=== PATIENT | male | born 1975 | race Caucasian/White ===

== ENCOUNTER → 2016-09-26 | Day surgery (SDC) | payer OTHER ==
[~2016-09-26] MED LIST: ASPIRIN81 M1 PO; GLUCOTROL PO; HCTZ; HCTZ PO; INDOCIN50 MG PO; INVOKANA100 MG; JANUVIA25 MG PO; LISINOPRIL PO; METFORMIN PO; METOPROLOL PO; PERCOCET PO; ZANTAC150 MG PO
--- NOTE | ~2016-09-26 | OR ---
Unit #: [id number] #: [id number] Patient: DONALD GOODE [id number] [address] [place], [place] [address] [id number] MR#: [id number] NAME: DONALD GOODE ROOM: Date of Procedure: 09/26/2016 Admission Date: 09/26/2016 Surgeon: Delmar Cordero M.D. : 1975 Attending Physician: Delmar Cordero M.D. Primary Care Physician: Kenney Leslie M.D. OPERATIVE REPORT PREOPERATIVE DIAGNOSES The patient has presented with history of belching, dyspepsia, and gastroesophageal reflux. In addition, he also needs a screening colonoscopy having had family history of colon cancer. Sister having of colon cancer in her 50s. PROCEDURE PERFORMED Upper gastrointestinal endoscopy and biopsy as well as colonoscopy up to cecum and terminal ileum. POSTOPERATIVE DIAGNOSES 1. For upper endoscopy, the patient had mild gastritis involving the mid body of the stomach with plaque-like appearances. Appropriate biopsies obtained. The biopsies obtained for CLOtest. The rest of the examination up to third part of duodenum was normal. 2. For colonoscopy, mild diverticulosis involving the right colon. Otherwise, normal examination up to cecum and terminal ileum. The quality of prep was good. No polyps were present or seen. RECOMMENDATIONS 1. Repeat colonoscopy in 5 years. 2. The patient will be started on empiric omeprazole 40 mg p.o. daily. He will be followed up in the office in 3 to 4 months' time. SEDATION USED MAC. DESCRIPTION OF PROCEDURE Following detailed explanation of the potential risks and complications of upper endoscopy and a colonoscopy, namely perforation, bleeding, and complications related to sedation, the patient was brought to GI lab and laid in the left lateral decubitus position. Lubricated tip of the Olympus video upper endoscope was passed through bite block into the proximal esophagus under direct vision. The entire esophageal mucosa was examined and appeared normal. Z-line was nicely demarcated, there being no esophagitis or hiatus hernia. The scope was then advanced into the gastric cavity and the latter was insufflated. Mucosa of the fundus, body, and antrum examined. The patient was noted to have mild diffuse gastritis involving the mid body of the stomach with plaque-like appearances in this area. No ulcers or erosions were seen. Biopsies obtained from this area and antrum for CLOtest. The pylorus was intubated with visualization of the normal duodenal bulb and second and third part Unit #: [id number] #: [id number] Patient: DONALD GOODE of the duodenum. Upon withdrawal and retroflexion, incisura, cardia, and greater curve examined and no additional findings noted. The scope was then withdrawn in the distal esophagus. The entire esophageal mucosa was examined all the way up to pharynx. No additional findings noted. The examination table was then turned by 180 degrees and the patient positioned for a colonoscopy. A digital rectal examination was performed, which was normal. Lubricated tip of the Olympus video colonoscope was inserted through the anus and advanced under direct vision. The scope was advanced and passed up to sigmoid into descending colon. Scant small diverticula were noted in this area. The scope tip was then navigated all the way up to cecum with visualization of the ileocecal valve and the appendiceal orifice. Preparation was good with good visualization and photodocumentation was obtained. Last few inches of the terminal ileum also visualized after intubation of the ileocecal valve and appeared normal. Successive segments of the colonic mucosa were examined upon withdrawal and appeared unremarkable except for scant diverticula on the right colon. No polyps or angiodysplasias were seen. The patient did not have any hemorrhoids at anal verge. The scope was then withdrawn. The patient returned to the recovery area. He tolerated the procedure without any postprocedure complications. Dictated by... Benjy Chris/daphnie TD: 09/26/2016 18:20 JOB #: [id number] CC: Kenney Leslie M.D. OPERATIVE REPORT Page 1 of 1 X Delmar Cordero MD X PROCEDURE OPERATIVE NOTE
== END | disposition home or self-care (01) ==
LOC: COPS 11:48
DX: K29.70 Gastritis, unspecified, without bleeding (principal); K57.30 Diverticulosis of large intestine without perforation or abscess without bleeding; K21.9 Gastro-esophageal reflux disease without esophagitis; E11.9 Type 2 diabetes mellitus without complications; I10 Essential (primary) hypertension; G47.30 Sleep apnea, unspecified; Z79.899 Other long term (current) drug therapy
CPT/HCPCS: 82947; 87077; J2250